=== PATIENT | female | born 1985 | race Hispanic/Latino ===

== ENCOUNTER 2016-06-30 11:04 | Day surgery (SDC) | payer OTHER ==
[~2016-06-30] VITALS: Ht 170.2 cm; Wt 65.3 kg
[~2016-06-30 11:04] MED LIST: 0.9% Sodium Chloride 1,000 ML IV SCH; LEVO137T24 PO; POLY17PO6 PO; Sodium Chloride LOK Flush 10 mL Syringe IV PRN; fentaNYL-PF 50 mCg/mL 2 mL Inj IVPUSH PRN
[2016-06-30] MEDS ORDERED: LEVO125T6 PO (11:46)
[2016-06-30 11:53] VITALS: BP 98/64; PULSE 72; RESP 14; O2SAT 100
[2016-06-30 12:32] VITALS: BP 94/57; PULSE 75; RESP 16; O2SAT 100
[2016-06-30 12:42] VITALS: BP 87/56; PULSE 65; RESP 16; O2SAT 100
[2016-06-30 12:52] VITALS: BP 86/54; PULSE 69; RESP 16; O2SAT 100
[2016-06-30 13:02] VITALS: BP 84/63; PULSE 62; RESP 16; O2SAT 100
--- NOTE | 2016-06-30 21:09 | ENDO ---
[address] [address] ENDOSCOPY PROCEDURE PATIENT: JAVIER ROMO : 1985 MR#: [id number] ADMIT: 06/30/2016 JOB ID: [id number] PROCEDURE: Colonoscopy. INDICATION: Blood in stool and change in bowel habits. Patient's ASA classification is I. Mallampati score is I. MEDICATIONS: Versed 5 mg, fentanyl 100 mcg. INSTRUMENT USED: PCF-H180AL Prep quality was good. PROCEDURE DETAILS: After informed consent was obtained, the patient was brought into the GI suite, where she was placed on oxygen via nasal cannula and monitored with continuous pulse oximeter, telemetry, and blood pressure monitoring. A time-out was performed. Then, she was placed in a left lateral decubitus position and medications were administered for sedation. Digital rectal exam was performed which was unremarkable. The colonoscope was then inserted into the rectum and advanced under direct visualization to the cecum. From the cecum, the terminal ileum was intubated, which was identified by the presence of the ileocecal valve and villous-appearing mucosa in the terminal ileum. Once the terminal ileum was reached, the colonoscope was withdrawn back into the rectum as the mucosa and lumen were examined. In the rectum, retroflexion was performed. Following retroflexion, remaining air in the rectum was suctioned and the procedure was completed. FINDINGS: 1. Normal-appearing terminal ileum. Multiple random biopsies were obtained. 2. The mucosa from the cecum to the distal sigmoid colon appeared normal. Starting from the distal sigmoid colon at approximately 15 cm, extending to the rectum the mucosa appeared edematous, erythematous, with what appeared to be multiple erosions versus aphthous ulcerations. The mucosa was friable. Multiple random biopsies were obtained. IMPRESSION: Proctosigmoiditis. RECOMMENDATIONS: Obtain CBC and CMP. Await biopsy results. I suspect we may be dealing with inflammatory bowel disease. Favor ulcerative colitis. Pending biopsy results, may need to start mesalamine or sulfasalazine. Follow up in GI clinic. COMPLICATIONS: None. ESTIMATED BLOOD LOSS: Less than 5 mL.
--- NOTE | 2016-07-03 16:31 | PATH ---
SURGICAL PATHOLOGY Attending Physician:Aurelio Maurice CASE STATUS: Signed Out PATIENT NAME: JAVIER ROMO PID: [id number] : 1985 DATE COLLECTED:06/30/2016 20:08 SPECIMEN: 1: Ileum, Biopsy 2: Colon, Biopsy 3: Colon, Biopsy 4: Colon, Biopsy 5: Rectum, Biopsy 6: Colon, Biopsy CLINICAL HISTORY: BLOOD IN STOOL 1). TERMINAL ILEUM BIOPSY 2). RIGHT COLON BIOPSY 3). TRANSVERSE COLON BIOPSY 4). LEFT COLON BIOPSY 5). RECTAL BIOPSY 6). DISTAL SIGMOID COLON BIOPSY FINAL DIAGNOSIS: 1.TERMINAL ILEUM, BIOPSY: SMALL BOWEL MUCOSA WITH NO DIAGNOSTIC ABNORMALITY. Negative for active inflammation, dysplasia and malignancy. 2. 4.RIGHT COLON, TRANSVERSE COLON, LEFT COLON, BIOPSIES: COLONIC MUCOSA WITH NO DIAGNOSTIC ABNORMALITY. Negative for active inflammation, granulomas, dysplasia and malignancy. 5. 6.RECTUM, DISTAL SIGMOID COLON, BIOPSIES: MILDLY ACTIVE COLITIS, INCLUDING CRYPTITIS AND ASSOCIATED DISTORTION OF THE CRYPT ARCHITECTURE (SEE COMMENT). Negative for granulomas, dysplasia and malignancy. 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 No obvious viral cytopathic effects or parasitic organisms are identified. The differential diagnosis includes infection, medication-related mucosal injury, trauma/prolapse, and idiopathic inflammatory bowel disease. GROSS DESCRIPTION: Received are six formalin-filled containers, each labeled with the patient' s name. 1. Received in formalin, labeled with the patient' s name and "1. TI BX", are two fragments of lee, soft tissue ranging in size from 0.1 x 0.1 x 0.1 cm to 0.2 x 0.1 x 0.1 cm. All fragments are totally submitted in cassette 1A. 2. Received in formalin, labeled with the patient' s name and "2. Right colon BX", are three fragments of lee, soft tissue ranging in size from 0.1 x 0.1 x 0.1 cm to 0.2 x 0.2 x 0.1 cm. All fragments are totally submitted in cassette 2A. 3. Received in formalin, labeled with the patient' s name and "3. Transverse colon BX", is one fragment of lee, soft tissue measuring 0.2 x 0.2 x 0.2 cm. The fragment is totally submitted in cassette 3A. 4. Received in formalin, labeled with the patient' s name and "4. Left colon BX", are three fragments of lee, soft tissue ranging in size from 0.1 x 0.1 x 0.1 cm to 0.2 x 0.1 x 0.1 cm. All fragments are totally submitted in cassette 4A. 5. Received in formalin, labeled with the patient' s name and "5. Rectal BX", are four fragments of lee, soft tissue ranging in size from 0.1 x 0.1 x 0.1 cm to 0.2 x 0.2 x 0.2 cm. All fragments are totally submitted in cassette 5A. 6. Received in formalin, labeled with the patient' s name and "6. Distal sigmoid colon BX", are three fragments of lee, soft tissue ranging in size from 0.1 x 0.1 x 0.1 cm to 0.2 x 0.1 x 0.1 cm. All fragments are totally submitted in cassette 6A. ([id number]) MICRO DESCRIPTION: See diagnosis. ICD-9 CODES: CPT CODES: 1: 37438 2: 51516 3: 28798 4: 86502 5: 20488 6: 12442 Electronically Signed Out Josefina Cheek MD [facility] Pathology [facility] [address], [place] [address] Technical component performed at [facility], [facility] [address], [place], [address]
== END 2016-06-30 23:59 | disposition home or self-care (01) ==
LOC: END 11:04
PROVIDERS: ATTEND Internal Medicine Gastroenterology
DX: K52.89 Other specified noninfective gastroenteritis and colitis (principal); K63.89 Other specified diseases of intestine; R19.4 Change in bowel habit; E03.9 Hypothyroidism, unspecified; E05.00 Thyrotoxicosis with diffuse goiter without thyrotoxic crisis or storm; D69.6 Thrombocytopenia, unspecified
CPT/HCPCS: 45380; G0500; J2250; J3010; J7030